=== PATIENT | female | born 1945 | race Caucasian/White ===

== ENCOUNTER 2023-04-10 09:52 | Inpatient (IN) | payer OTHER ==
[~2023-04-10] VITALS: Ht 152.4 cm; Wt 54.4 kg
[2023-04-10 09:57] VITALS: BP_SYST 103; PULSE 63; RESP 16; TEMP 96.8; O2SAT 94
[2023-04-10 10:34] LABS: ANION GAP 7 (5-15); CARBON DIOXIDE 24 mmol/L (23-29); CHLORIDE 104 mmol/L (98-107); GLUCOSE 124 mg/dL (74-106); POTASSIUM 3.4 mmol/L (3.5-5.1); SODIUM SERUM 135 mmol/L (136-145); UREA NITROGEN, BLOOD 11 mg/dL (8-21)
[2023-04-10 10:36] LABS: INR 1.2 (0.8-1.2); PROTHROMBIN TIME 12.1 SECS (9.5-12.5)
[2023-04-10] MEDS: NACL 0.9% 1,000 ML IV ONE (10:36)
[2023-04-10 10:37] LABS: BASOPHILS # (AUTO) 0.1 K/uL (0.0-0.2); BASOPHILS % (AUTO) 1.2 % (0.0-2.0); EOSINOPHILS # (AUTO) 0.3 K/uL (0.0-0.4); HEMATOCRIT 30.7 % (36-48); HEMOGLOBIN 10.4 g/dL (12.0-16.0); LYMPHOCYTES % (AUTO) 13.9 % (20.5-51.5); MEAN CORPUSCULAR HEMOGLOBIN 31 pg (27-31); MEAN CORPUSCULAR HGB CONC 34 % (32-36); MEAN CORPUSCULAR VOLUME 91 fL (79.0-98.0); MONOCYTES # (AUTO) 0.9 K/uL (0.0-1.0); MONOCYTES % (AUTO) 13.3 % (1.7-9.3); NEUTROPHILS # (AUTO) 4.8 K/uL (1.8-7.7); NEUTROPHILS % (AUTO) 67.6 % (40.0-70.0); PLATELET COUNT (AUTO) 200 K/uL (130-430); RED BLOOD CELL COUNT(AUTO) 3.39 MIL/uL (4.2-6.2); RED CELL DISTRIBUTION WIDTH 17.8 % (9.0-15.0); WHITE BLOOD COUNT (AUTO) 7.1 K/uL (4.8-10.8)
[2023-04-10] MEDS ORDERED: ONDANSETRON HCL 4 MG/2 ML VIAL IVP PRN (11:30)
[2023-04-10] MEDS ORDERED: MUPIROCIN 2% TOPICAL OINTMENT 22 GM NS PRN (11:30)
[2023-04-10] MEDS ORDERED: DOCUSATE SODIUM 100 MG CAPSULE PO PRN (11:30)
[2023-04-10] MEDS ORDERED: ZOLPIDEM TARTRATE 5 MG TABLET PO PRN (11:30)
[2023-04-10] MEDS ORDERED: ACETAMINOPHEN 325 MG TABLET PO PRN (11:30)
[2023-04-10] MEDS ORDERED: MORPHINE 2 MG/ML INJ. SYRINGE IVP PRN ×2 (11:30)
[2023-04-10] MEDS ORDERED: LORazepam 2 MG/ML VIAL IVP PRN (11:30)
[2023-04-10] MEDS ORDERED: DEXTROSE 50% JECT 50 ML DISP.SYRIN IVP PRN (11:30)
[2023-04-10] MEDS ORDERED: MAGNESIUM SULFATE 50 ML IV PRN (11:30)
[2023-04-10] MEDS ORDERED: NALOXONE HCL 0.4 MG/ML AMP (NARCAN) IVP PRN ×2 (11:30)
[2023-04-10] MEDS ORDERED: INSULIN LISPRO SLIDING SCALE 100 UNITS/ML, 3 ML VIAL (humaLOG) SUBCUT PRN (11:30)
[2023-04-10] MEDS ORDERED: FURO-150 PO (11:35)
[2023-04-10] MEDS ORDERED: PHEN100C4 PO (11:35)
[2023-04-10] MEDS ORDERED: ASA81 PO (11:35)
[2023-04-10] MEDS ORDERED: URSO500T7 PO (11:35)
[2023-04-10] MEDS ORDERED: LIP40 PO (11:35)
[2023-04-10] MEDS ORDERED: BUDE6.9H INH (11:35)
[2023-04-10] MEDS ORDERED: CLOP75TA32 PO (11:35)
[2023-04-10] MEDS ORDERED: ISO10 PO (11:35)
[2023-04-10] MEDS ORDERED: CARV10CP7 PO (11:35)
[2023-04-10] MEDS ORDERED: ACET325T PO (11:35)
[2023-04-10] MEDS ORDERED: AMLO-307 PO (11:35)
[2023-04-10] MEDS ORDERED: LEVE1000 PO (11:35)
[2023-04-10] MEDS ORDERED: ANAS1TAB51 PO (11:35)
[2023-04-10 11:45] VITALS: PULSE 65; O2SAT 96
[2023-04-10 11:53] LABS: BILIRUBIN,DIRECT 0.1 mg/dL (0.0-0.3); TOTAL BILIRUBIN 0.3 mg/dL (0.0-1.0); TOTAL PROTEIN, SERUM 4.9 g/dL (6.4-8.3)
[2023-04-10 12:06] VITALS: O2SAT 94
[2023-04-10] MEDS: IPRATROPIUM/ALBUTEROL SULFATE 3 ML AMPUL.NEB (DUONEB) INH PRN (12:09)
[2023-04-10] MEDS: cefTRIAXone 1 GM in D5W 50 ML IV ONE (12:51)
[2023-04-10] MEDS: AZITHROMYCIN 500 MG in NS 250 ML IV ONE (12:51)
[2023-04-10] MEDS: PIPERACILLIN/TAZO 3.375 GM in NS 50 ML IV SCH (16:05)
[2023-04-10 16:51] VITALS: BP_SYST 116; PULSE 59; RESP 18; TEMP 97.6; O2SAT 96
[2023-04-10 17:24] VITALS: BP_SYST 103; PULSE 64; RESP 18; TEMP 98.1; O2SAT 97
[2023-04-10 20:00] VITALS: BP_SYST 123; PULSE 87; RESP 18; TEMP 99.5; O2SAT 95
[2023-04-10] MEDS: HEPARIN SODIUM,PORCINE 5,000 UNITS/ML VIAL SUBCUT SCH (20:30)
[2023-04-11] VITALS (7 sets, daily range): BP systolic 103–128; PULSE 75–88; RESP 16–20; TEMP 97.2–99; O2SAT 92–98
[2023-04-11 06:02] LABS: BASOPHILS # (AUTO) 0.1 K/uL (0.0-0.2); BASOPHILS % (AUTO) 0.7 % (0.0-2.0); EOSINOPHILS # (AUTO) 0.2 K/uL (0.0-0.4); EOSINOPHILS % (AUTO) 2.9 % (0.0-4.0); LYMPHOCYTES # (AUTO) 0.6 K/uL (1.0-5.5); MEAN CORPUSCULAR HEMOGLOBIN 30 pg (27-31); MEAN CORPUSCULAR HGB CONC 33 % (32-36); MEAN CORPUSCULAR VOLUME 90 fL (79.0-98.0); MONOCYTES # (AUTO) 0.4 K/uL (0.0-1.0); MONOCYTES % (AUTO) 4.6 % (1.7-9.3); NEUTROPHILS # (AUTO) 7.2 K/uL (1.8-7.7); NEUTROPHILS % (AUTO) 84.8 % (40.0-70.0); PLATELET COUNT (AUTO) 224 K/uL (130-430); RED BLOOD CELL COUNT(AUTO) 3.68 MIL/uL (4.2-6.2); RED CELL DISTRIBUTION WIDTH 18.6 % (9.0-15.0); WHITE BLOOD COUNT (AUTO) 8.5 K/uL (4.8-10.8)
[2023-04-11 06:21] LABS: ANION GAP 12 (5-15); CALCIUM 7.8 mg/dL (8.4-11.0); CARBON DIOXIDE 21 mmol/L (23-29); CHLORIDE 106 mmol/L (98-107); CREATININE 0.77 mg/dL (0.55-1.30); GLUCOSE 89 mg/dL (74-106); POTASSIUM 3.3 mmol/L (3.5-5.1); SODIUM SERUM 139 mmol/L (136-145); UREA NITROGEN, BLOOD 12 mg/dL (8-21)
[2023-04-11] MEDS: POTASSIUM CHLORIDE 20 MEQ TABLET.ER PO PRN (09:03)
[2023-04-11] MEDS ORDERED: URSO300C7 PO (10:52)
[2023-04-11] MEDS ORDERED: ESCI10TA PO (10:52)
[2023-04-11] MEDS ORDERED: AMLO2.5T2 PO (10:52)
[2023-04-11] MEDS ORDERED: SENN8.6T19 PO (10:52)
[2023-04-11] MEDS ORDERED: BUDE6HFA INH (10:52)
[2023-04-11] MEDS ORDERED: DOCU-144 PO (10:52)
[2023-04-11] MEDS ORDERED: ACET-2634 PO (10:52)
[2023-04-11] MEDS ORDERED: ISOS20TA8 PO (10:52)
[2023-04-11] MEDS ORDERED: MOM PO (10:52)
[2023-04-11] MEDS ORDERED: ESOM20CA38 PO (10:52)
[2023-04-11] MEDS ORDERED: LACT10SO7 PO (10:52)
[2023-04-11] MEDS ORDERED: CARV6.2554 PO (10:52)
[2023-04-11] MEDS ORDERED: BISA10SU61 RC (10:52)
[2023-04-11] MEDS ORDERED: FLUT1BLS5 IH (10:52)
[2023-04-11] MEDS ORDERED: FERR-69 PO (10:52)
[2023-04-11] MEDS: PHENYTOIN 100 MG CAPSULE PO SCH (15:02)
[2023-04-11] MEDS: levETIRAcetam 500 MG TABLET PO SCH (21:54)
[2023-04-11] MEDS: ATORVASTATIN 20 MG TABLET PO SCH (21:56)
[2023-04-12] VITALS (8 sets, daily range): BP systolic 114–118; PULSE 63–88; RESP 18–20; TEMP 97.7–98; O2SAT 96–97
[2023-04-12 05:46] LABS: BASOPHILS # (AUTO) 0.1 K/uL (0.0-0.2); BASOPHILS % (AUTO) 0.8 % (0.0-2.0); EOSINOPHILS # (AUTO) 0.9 K/uL (0.0-0.4); EOSINOPHILS % (AUTO) 11.7 % (0.0-4.0); HEMATOCRIT 31.7 % (36-48); HEMOGLOBIN 10.7 g/dL (12.0-16.0); LYMPHOCYTES # (AUTO) 1.2 K/uL (1.0-5.5); LYMPHOCYTES % (AUTO) 14.6 % (20.5-51.5); MEAN CORPUSCULAR HEMOGLOBIN 30 pg (27-31); MEAN CORPUSCULAR HGB CONC 34 % (32-36); MEAN CORPUSCULAR VOLUME 89 fL (79.0-98.0); MONOCYTES # (AUTO) 0.8 K/uL (0.0-1.0); MONOCYTES % (AUTO) 10.3 % (1.7-9.3); NEUTROPHILS % (AUTO) 62.6 % (40.0-70.0); PLATELET COUNT (AUTO) 211 K/uL (130-430); RED BLOOD CELL COUNT(AUTO) 3.55 MIL/uL (4.2-6.2); RED CELL DISTRIBUTION WIDTH 17.6 % (9.0-15.0); WHITE BLOOD COUNT (AUTO) 7.9 K/uL (4.8-10.8)
[2023-04-12 06:07] LABS: ANION GAP 10 (5-15); CALCIUM 8.1 mg/dL (8.4-11.0); CARBON DIOXIDE 21 mmol/L (23-29); CHLORIDE 108 mmol/L (98-107); CREATININE 0.74 mg/dL (0.55-1.30); GLUCOSE 70 mg/dL (74-106); POTASSIUM 3.5 mmol/L (3.5-5.1); SODIUM SERUM 139 mmol/L (136-145); UREA NITROGEN, BLOOD 13 mg/dL (8-21)
[2023-04-12] MEDS ORDERED: LACTULOSE 20 GM/30 ML UDC PO SCH (09:00)
[2023-04-12] MEDS: ANASTROZOLE 1 MG TABLET (ARIMIDEX) PO SCH (10:11)
[2023-04-12] MEDS: ASPIRIN 81 MG TAB.CHEW PO SCH (10:11)
[2023-04-12] MEDS: FUROSEMIDE 20 MG TABLET PO SCH (10:13)
[2023-04-13 00:45] VITALS: BP_SYST 127; PULSE 85; RESP 18; TEMP 98.4; O2SAT 94
[2023-04-13 05:56] LABS: BASOPHILS % (AUTO) 0.4 % (0.0-2.0); EOSINOPHILS # (AUTO) 0.7 K/uL (0.0-0.4); HEMATOCRIT 33.1 % (36-48); HEMOGLOBIN 11.1 g/dL (12.0-16.0); LYMPHOCYTES # (AUTO) 1.2 K/uL (1.0-5.5); LYMPHOCYTES % (AUTO) 13.9 % (20.5-51.5); MEAN CORPUSCULAR HEMOGLOBIN 30 pg (27-31); MEAN CORPUSCULAR HGB CONC 34 % (32-36); MEAN CORPUSCULAR VOLUME 90 fL (79.0-98.0); MONOCYTES # (AUTO) 0.8 K/uL (0.0-1.0); MONOCYTES % (AUTO) 9.4 % (1.7-9.3); NEUTROPHILS # (AUTO) 5.8 K/uL (1.8-7.7); NEUTROPHILS % (AUTO) 68.3 % (40.0-70.0); PLATELET COUNT (AUTO) 222 K/uL (130-430); RED BLOOD CELL COUNT(AUTO) 3.69 MIL/uL (4.2-6.2); RED CELL DISTRIBUTION WIDTH 18.5 % (9.0-15.0); WHITE BLOOD COUNT (AUTO) 8.5 K/uL (4.8-10.8)
[2023-04-13 06:36] LABS: ANION GAP 9 (5-15); CALCIUM 8.2 mg/dL (8.4-11.0); CARBON DIOXIDE 23 mmol/L (23-29); CHLORIDE 106 mmol/L (98-107); CREATININE 0.69 mg/dL (0.55-1.30); GLUCOSE 97 mg/dL (74-106); POTASSIUM 3.2 mmol/L (3.5-5.1); SODIUM SERUM 138 mmol/L (136-145); UREA NITROGEN, BLOOD 11 mg/dL (8-21)
[2023-04-13 08:00] VITALS: BP_SYST 122; PULSE 83; RESP 16; TEMP 97.9; O2SAT 96; O2SAT 99
[2023-04-13] MEDS ORDERED: LACT10SO6 PO (08:43)
[2023-04-13] MEDS: LACTULOSE 20 GM/30 ML UDC PO SCH (08:43)
[2023-04-13 09:12] VITALS: PULSE 82; O2SAT 95
[2023-04-13 11:10] VITALS: BP_SYST 120; PULSE 77; RESP 16; TEMP 96.8; O2SAT 93
[2023-04-13 12:02] VITALS: BP_SYST 120; PULSE 77; RESP 16; TEMP 96.8; O2SAT 93
== END 2023-04-13 13:25 | disposition hospice, home (50) | DRG 432 ==
LOC: SED 09:52 → STU 11:11
PROVIDERS: ADMIT General Practice; ATTEND General Practice
PROC: 0W9G3ZZ Drainage of Peritoneal Cavity, Percutaneous Approach (ICD-10-PCS; principal; 2023-04-12)
DX: K74.60 Unspecified cirrhosis of liver (principal); J69.0 Pneumonitis due to inhalation of food and vomit; R18.8 Other ascites; K76.82 Hepatic encephalopathy; K72.10 Chronic hepatic failure without coma; I95.1 Orthostatic hypotension; K75.4 Autoimmune hepatitis; E11.9 Type 2 diabetes mellitus without complications; I10 Essential (primary) hypertension; J44.9 Chronic obstructive pulmonary disease, unspecified; Z87.891 Personal history of nicotine dependence; Z79.82 Long term (current) use of aspirin; Z79.899 Other long term (current) drug therapy; Z95.5 Presence of coronary angioplasty implant and graft
CPT/HCPCS: 36415; 49083; 70450-TC; 71045; 76700; 80048; 80076; 82140; 82948; 83037; 83605; 83735; 84484; 85025; 85610; 85730; 87040; 87081; 93005; 94640; 96361; 96365; 96368; 97110-GP; 97116-GP; 97530-GP; 99285; G0378; J0456; J0696; J1644; J2543; J7050; J7060